=== PATIENT | male | born 1985 | race Caucasian/White ===

== ENCOUNTER 2018-04-28 12:42 | Emergency (ER) | payer OTHER, SELFPAY ==
[2018-04-28 12:50] VITALS: BP 139/77; PULSE 96; RESP 18; TEMP 37.4; O2SAT 97; BMI 31.4
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
[2018-04-28] MEDS: TET,DIPH,PERTUSS(ACELL),VAC/PF 0.5 ML SYRINGE IM (12:56)
[2018-04-28 13:21] VITALS: BP 129/85; PULSE 82; RESP 14; O2SAT 99
== END 2018-04-28 13:22 | disposition home or self-care (01) ==
PROVIDERS: Emergency Provider Emergency Medicine
DX: S81.811A Laceration without foreign body, right lower leg, initial encounter (principal); W26.8XXA Contact with other sharp object(s), not elsewhere classified, initial encounter; Y99.0 Civilian activity done for income or pay
CPT/HCPCS: 12002; 90471; 99283; 90715